=== PATIENT | female | born 1995 | race Caucasian/White ===

== ENCOUNTER 2018-06-02 23:39 | Emergency (ER) | payer SELFPAY ==
--- NOTE | 2018-06-02 23:51 | ER Report ---
History and Physical Time Seen By MD: 23:51 HPI/ROS CHIEF COMPLAINT: Suicidal ideation HISTORY OF PRESENT ILLNESS: 22-year-old female presents with 2 friends voluntarily requesting admission. She's been having suicidal ideation for several weeks to months. She is seeing a counselor, but is not making any progress. Patient has no specific plan. She denies drug or alcohol use. She states she is compliant on her Celexa. REVIEW OF SYSTEMS: Respiratory: No cough, no dyspnea. Cardiovascular: No chest pain, no palpitations. Gastrointestinal: No vomiting, no abdominal pain. Musculoskeletal: No back pain. Allergies: Coded Allergies: No Known Drug Allergies (Unverified , 06/03/18) Per patient Home Meds Reported Medications Albuterol Sulfate (VENTOLIN HFA) 18 Gm Inh, 2 PUFF INH Q4-6H PRN for PRN, INH 06/03/18 Citalopram Hydrobromide (CITALOPRAM HBR) 20 Mg Tablet, 40 MG PO QDAY, #5 TAB 06/03/18 Cetirizine Hcl (ZYRTEC) 10 Mg Capsule, 10 MG PO QDAY, CAPSULE 06/03/18 Reviewed Nurses Notes: Yes Old Medical Records Reviewed: Yes Constitutional Vital Sign - Last 24 Hours 06/02/18 06/02/18 06/02/18 06/03/18 23:39 23:47 23:48 00:00 Temp 98.6 Pulse ??? 89 Resp 18 B/P (MAP) 128/86 128/86 (100) 119/81 (94) Pulse Ox 93 06/03/18 06/03/18 06/03/18 00:09 00:30 01:00 Pulse 96 B/P (MAP) 118/82 (94) 110/72 (85) Pulse Ox 97 Physical Exam General Appearance: The patient is alert, has no immediate need for airway protection and no current signs of toxicity. Vital signs stable, afebrile, puls e ox normal Eyes: Pupils equal and round no injection. Respiratory: Chest is non tender, lungs are clear to auscultation. Cardiac: regular rate and rhythm Gastrointestinal: Abdomen is soft and non tender, no masses, bowel sounds normal. Musculoskeletal: Neck: Neck is supple and non tender. Extremities have full range of motion and are non tender. Skin: No rashes or lesions. DIFFERENTIAL DIAGNOSIS: After history and physical exam differential diagnosis was considered for depression including functional and major depression, situational depression, medication side effect, suicidal ideation, drugs and alcohol abuse. Medical Decision Making Data Points Result Diagram: 06/03/18 0020 06/03/18 0020 Laboratory Hematology Test 06/03/18 00:00 06/03/18 00:20 Urine Color Yellow Urine Clarity Clear Urine pH 7.0 pH (4.8-9.5) Urine Specific Graham 1.026 Urine Protein Negative mg/dL (NEGATIVE) Urine Glucose (UA) Negative mg/dL (NEGATIVE) Urine Ketones Negative mg/dL (NEGATIVE) Urine Blood Negative (NEGATIVE) Urine Nitrite Negative (NEGATIVE) Urine Bilirubin Negative (NEGATIVE) Urine Urobilinogen 2.0 mg/dL (0.2-1.9) Urine Leukocyte Esterase Moderate (NEGATIVE) Urine RBC 1 /HPF (0-2/HPF) Urine WBC 10 /HPF (0-5/HPF) Urine Squamous Epithelial Cells Many /LPF (</=FEW) Urine Bacteria Few /HPF (NONE-FEW) Urine Mucus Few /HPF (NONE-FEW) Urine HCG, Qualitative Negative (NEGATIVE) Urine Opiates Screen Negative Urine Barbiturates Screen Negative Ur Tricyclic Antidepressants Screen Negative Urine Phencyclidine Screen Negative Urine Amphetamines Screen Negative Urine Benzodiazepines Screen Negative Urine Cocaine Screen Negative Urine Cannabinoids Screen Negative Red Blood Count 4.62 M/uL (4.17-5.56) Mean Corpuscular Volume 86.7 fL (80.0-96.0) Mean Corpuscular Hemoglobin 29.4 pg (26.0-33.0) Mean Corpuscular Hemoglobin Concent 33.8 g/dL (32.0-36.0) Red Cell Distribution Width 13.9 % (11.5-14.5) Mean Platelet Volume 9.8 fL (7.2-11.1) Neutrophils (%) (Auto) 44.2 % (39.4-72.5) Lymphocytes (%) (Auto) 45.8 % (17.6-49.6) Monocytes (%) (Auto) 5.8 % (4.1-12.4) Eosinophils (%) (Auto) 3.1 % (0.4-6.7) Basophils (%) (Auto) 1.1 % (0.3-1.4) Nucleated RBC Relative Count (auto) 0.1 /100WBC Neutrophils # (Auto) 4.0 K/uL (2.0-7.4) Lymphocytes # (Auto) 4.2 K/uL (1.3-3.6) Monocytes # (Auto) 0.5 K/uL (0.3-1.0) Eosinophils # (Auto) 0.3 K/uL (0.0-0.5) Basophils # (Auto) 0.1 K/uL (0.0-0.1) Nucleated RBC Absolute Count (auto) 0.01 K/uL Sodium Level 140 mmol/L (137-145) Potassium Level 3.6 mmol/L (3.5-5.0) Chloride Level 107 mmol/L (98-107) Carbon Dioxide Level 24 mmol/L (22-31) Blood Urea Nitrogen 14 mg/dl (7-18) Creatinine 0.70 mg/dl (0.52-1.04) Glomerular Filtration Rate Calc > 60.0 Random Glucose 96 mg/dl (75-110) Calcium Level 9.3 mg/dl (8.4-10.2) Magnesium Level 1.8 mg/dl (1.7-2.2) Total Bilirubin 0.3 mg/dl (0.2-1.3) Aspartate Amino Transf (AST/SGOT) 20 U/L (0-35) Alanine Aminotransferase (ALT/SGPT) 31 U/L (0-56) Alkaline Phosphatase 94 U/L (0-126) Total Protein 6.8 g/dl (6.3-8.2) Albumin 4.3 g/dl (3.5-5.0) Salicylates Level < 10 mg/L Salicylate Last Dose Date unk Acetaminophen Level < 10 ug/ml Serum Alcohol < 10 mg/dl Chemistry Test 06/03/18 00:00 06/03/18 00:20 Urine Color Yellow Urine Clarity Clear Urine pH 7.0 pH (4.8-9.5) Urine Specific Graham 1.026 Urine Protein Negative mg/dL (NEGATIVE) Urine Glucose (UA) Negative mg/dL (NEGATIVE) Urine Ketones Negative mg/dL (NEGATIVE) Urine Blood Negative (NEGATIVE) Urine Nitrite Negative (NEGATIVE) Urine Bilirubin Negative (NEGATIVE) Urine Urobilinogen 2.0 mg/dL (0.2-1.9) Urine Leukocyte Esterase Moderate (NEGATIVE) Urine RBC 1 /HPF (0-2/HPF) Urine WBC 10 /HPF (0-5/HPF) Urine Squamous Epithelial Cells Many /LPF (</=FEW) Urine Bacteria Few /HPF (NONE-FEW) Urine Mucus Few /HPF (NONE-FEW) Urine HCG, Qualitative Negative (NEGATIVE) Urine Opiates Screen Negative Urine Barbiturates Screen Negative Ur Tricyclic Antidepressants Screen Negative Urine Phencyclidine Screen Negative Urine Amphetamines Screen Negative Urine Benzodiazepines Screen Negative Urine Cocaine Screen Negative Urine Cannabinoids Screen Negative White Blood Count 9.2 k/uL (4.5-11.0) Red Blood Count 4.62 M/uL (4.17-5.56) Hemoglobin 13.6 g/dL (12.0-16.0) Hematocrit 40.1 % (34.0-47.0) Mean Corpuscular Volume 86.7 fL (80.0-96.0) Mean Corpuscular Hemoglobin 29.4 pg (26.0-33.0) Mean Corpuscular Hemoglobin Concent 33.8 g/dL (32.0-36.0) Red Cell Distribution Width 13.9 % (11.5-14.5) Platelet Count 246 K/uL (150-450) Mean Platelet Volume 9.8 fL (7.2-11.1) Neutrophils (%) (Auto) 44.2 % (39.4-72.5) Lymphocytes (%) (Auto) 45.8 % (17.6-49.6) Monocytes (%) (Auto) 5.8 % (4.1-12.4) Eosinophils (%) (Auto) 3.1 % (0.4-6.7) Basophils (%) (Auto) 1.1 % (0.3-1.4) Nucleated RBC Relative Count (auto) 0.1 /100WBC Neutrophils # (Auto) 4.0 K/uL (2.0-7.4) Lymphocytes # (Auto) 4.2 K/uL (1.3-3.6) Monocytes # (Auto) 0.5 K/uL (0.3-1.0) Eosinophils # (Auto) 0.3 K/uL (0.0-0.5) Basophils # (Auto) 0.1 K/uL (0.0-0.1) Nucleated RBC Absolute Count (auto) 0.01 K/uL Glomerular Filtration Rate Calc > 60.0 Calcium Level 9.3 mg/dl (8.4-10.2) Magnesium Level 1.8 mg/dl (1.7-2.2) Total Bilirubin 0.3 mg/dl (0.2-1.3) Aspartate Amino Transf (AST/SGOT) 20 U/L (0-35) Alanine Aminotransferase (ALT/SGPT) 31 U/L (0-56) Alkaline Phosphatase 94 U/L (0-126) Total Protein 6.8 g/dl (6.3-8.2) Albumin 4.3 g/dl (3.5-5.0) Salicylates Level < 10 mg/L Salicylate Last Dose Date unk Acetaminophen Level < 10 ug/ml Serum Alcohol < 10 mg/dl Toxicology Test 06/03/18 00:00 06/03/18 00:20 Urine Opiates Screen Negative Urine Barbiturates Screen Negative Ur Tricyclic Antidepressants Screen Negative Urine Phencyclidine Screen Negative Urine Amphetamines Screen Negative Urine Benzodiazepines Screen Negative Urine Cocaine Screen Negative Urine Cannabinoids Screen Negative Salicylates Level < 10 mg/L Salicylate Last Dose Date unk Acetaminophen Level < 10 ug/ml Serum Alcohol < 10 mg/dl Urinalysis Test 06/03/18 00:00 Urine Color Yellow Urine Clarity Clear Urine pH 7.0 pH (4.8-9.5) Urine Specific Graham 1.026 Urine Protein Negative mg/dL (NEGATIVE) Urine Glucose (UA) Negative mg/dL (NEGATIVE) Urine Ketones Negative mg/dL (NEGATIVE) Urine Blood Negative (NEGATIVE) Urine Nitrite Negative (NEGATIVE) Urine Bilirubin Negative (NEGATIVE) Urine Urobilinogen 2.0 mg/dL (0.2-1.9) Urine Leukocyte Esterase Moderate (NEGATIVE) Urine RBC 1 /HPF (0-2/HPF) Urine WBC 10 /HPF (0-5/HPF) Urine Squamous Epithelial Cells Many /LPF (</=FEW) Urine Bacteria Few /HPF (NONE-FEW) Urine Mucus Few /HPF (NONE-FEW) Urine HCG, Qualitative Negative (NEGATIVE) ED Course/Re-evaluation ED Course Patient was admitted to an examination room. H&P was done. The differential diagnoses was considered. Patient was suicidal ideation but no active plan. P atient wants to be voluntarily admitted to [facility] for treatment and help. Patient states she's been suffering with severe depression and suicidal ideation for several weeks. 06/03/2018 12:58:20 am is discussed with Dr. Ban Chambers psychiatrist's on- call. She accepts the patient is a voluntary admission to [facility] for suicidal ideation and depression. Decision to Disposition Date: Jun 03, 2018 Decision to Disposition Time: 00:57 Depart Departure Latest Vital Signs Vital Signs Date Time Temp Pulse Resp B/P (MAP) Pulse Ox O2 Delivery O2 Flow Rate FiO2 06/03/18 01:00 110/72 (85) 06/03/18 00:09 96 97 06/02/18 23:47 98.6 18 Impression: Primary Impression: Depression with suicidal ideation Additional Impressions: History of asthma History of allergic rhinitis Condition: Improved Disposition: XFER TO [facility] Problem Qualifiers JUSTINE HARRINGTON DO Jun 02, 2018 23:51
[2018-06-03] MEDS ORDERED: ALB18R INH (00:01)
[2018-06-03] MEDS ORDERED: CETI10CA8 PO (00:01)
[2018-06-03] MEDS ORDERED: CITA-145 PO (00:01)
[2018-06-03 00:32] LABS: PLATELET COUNT, AUTOMATED 246 K/uL (150-450)
[2018-06-03 01:00] VITALS: BP 110/72
[2018-06-04] MEDS ORDERED: LAMO25TA64 PO (10:23)
== END 2018-06-03 01:10 ==
LOC: ER 06-03 00:04
DX: F32.9 Major depressive disorder, single episode, unspecified (principal); R45.851 Suicidal ideations
CPT/HCPCS: 36415; 80305; 80320; 80329; 81001; 81025; 82040; 82247; 82310; 82374; 82435; 82565; 82947; 83735; 84075; 84132; 84155; 84295; 84443; 84450; 84460; 84520; 85025; 99284

== ENCOUNTER 2018-06-03 01:01 | Inpatient (IN) | payer SELFPAY ==
[~2018-06-03] VITALS: Ht 165.1 cm; Wt 59.9 kg
[~2018-06-03 01:01] MED LIST: ALB18R INH; CETI10CA8 PO; CITA-145 PO
[2018-06-03] MEDS ORDERED: MAG HYD/AL HYD/SIMETH 30ML UDC PO PRN (01:10)
[2018-06-03] MEDS ORDERED: ACETAMINOPHEN 325 MG TAB PO PRN (01:10)
[2018-06-03] MEDS ORDERED: hydrOXYzine PAMOATE 25 MG CAP PO PRN (01:10)
[2018-06-03 01:37] VITALS: BP 98/64
[2018-06-03] MEDS: MULTIVITAMINS TAB PO SCH (08:18)
[2018-06-03] MEDS ORDERED: INFLUENZA VIRUS VAC 0.5ML SYR IM ONLY ONE (10:25)
[2018-06-03] MEDS: lamoTRIgine 25 MG TAB PO SCH (12:22)
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
[2018-06-04 06:25] VITALS: BP 102/67
[2018-06-04] MEDS: MULTIVITAMINS TAB PO SCH (08:27)
[2018-06-04] MEDS: lamoTRIgine 25 MG TAB PO SCH (08:28)
[2018-06-04] MEDS ORDERED: LAMO25TA64 PO (10:23)
--- NOTE | 2018-06-04 17:05 | BHS Discharge Summary ---
[facility] Discharge Summary [id number] Encounter Date: Jun 04, 2018 Xatm-[id number] Encounter Time: 11:00 Reason-Hosp/Final Diag (DSM-V): (1) Bipolar 2 disorder Hospital Course & Plan: PRESENTING PROBLEM, CHIEF COMPLAINT "I ran out of my medication a couple days ago. 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 She has been seeing a counselor, although reported that she is not making any progress. Patient denied any specific plan to end her life. She denies use of drugs or alcohol. She has been taking citalopram since November 2017, although reports the last month and a half that the medication dose was increased from 20 to 40 mg with noted increase in irritability. She has been seeing Rabia Sarmiento at [facility], who she states is now moving to [facility]. She also has been seeing a counselor named Bernarda one time every two weeks since March 2018. She has never been an inpatient on a psychiatric unit. She does report that in 2013 through 2015, she had some self-harm behavior in the form of scratching herself. She was initially seen by a mental health care provider in 2013, where she had suicidal ideation and thought of overdosing on her grandmother's medications. HOSPITAL COURSE Pt was admitted to [facility] and maintained on suicide precautions. She was pleasant, cooperative, and invested in her treatment. Her grandmother was involved in her care by speaker phone. Because of her history of mild mood swings-- mostly to depression, with some hypomanic episodes but never true john, the diagnosis of bipolar 2 was given. We DC'd celexa and started her on lamictal. She unde rstands the serious risk of rash, and to notify her provider immediately if she notices a rash. We explained the necessicity of slow titration by 25 mg every two weeks until 100 mg per day. She denied active SI-- she said she was encouraged and very hopeful that this diagnosis and medication change would be helpful to her. She was discharged in stable condition to follow up with Kaelyn at [facility], and with Rabia Sarmiento at [facility] for meds. She was given an appointment to see the electric spot welder office at as well. Physical Exam Latest Vital Signs Vital Signs 06/03/18 06/04/18 01:37 06:25 Temp 99.4 Pulse 89 Resp 16 B/P (MAP) 102/67 (79) Pulse Ox 97 O2 Delivery Room Air Mental Status Exam General Appearance: Casual, Well Groomed, Good Eye Contact, Cooperative, Polite, Good Interaction Speech: Clear, Spontaneous, Normal Rate, Normal Rhythm, Normal Volume, Normal Tone Mood: Euthymic Affect: Full and Appropriate, Calm Thought Process: Organized, Logical, Goal Directed Thought Content: No Suicidal Ideation, No Homicidal Ideation, No Delusions, No Auditory Halllucinations, No Visual Hallucinations, No Thought Broadcasting, No Ideas of Reference, No Obsessions, No Compulsions, No Other Sensorium: Clear Cognition: Alert & Oriented-Person, Alert & Oriented-Place, Alert & Oriented- Time Memory: Immediate, Recent, Remote Intelligence: Above Average Insight Judgment: Good Departure Item Value Date Time Urine Color Yellow 06/03/18902 Urine Clarity Clear 06/03/18 09 Urine pH 6.0 pH 06/03/18 09 Urine Specific [place] 1.020 06/03/18902 Urine Protein Negative mg/dL 06/03/18902 Urine Glucose (UA) Negative mg/dL 06/03/18 09 Urine Ketones Negative mg/dL 06/03/18 09 Urine Blood Negative 06/03/18902 Urine Nitrite Negative 06/03/18902 Urine Urobilinogen Negative mg/dL 06/03/18902 Urine Bilirubin Negative 06/03/18902 Urine Leukocyte Esterase Trace H 06/03/18 09 Urine RBC <1 /HPF 06/03/18 0903 Urine WBC <1 /HPF 06/03/18 0903 Urine Squamous Epithelial Cells Many /LPF H 06/03/18 0903 Urine Bacteria Negative /HPF 06/03/18 0903 Urine Mucus Few /HPF 06/03/18 0903 White Blood Count 9.2 k/uL 06/03/18 0020 Red Blood Count 4.62 M/uL 06/03/18 0020 Hemoglobin 13.6 g/dL 06/03/18 0020 Hematocrit 40.1 % 06/03/18 0020 Mean Corpuscular Volume 86.7 fL 06/03/18 002 Mean Corpuscular Hemoglobin 29.4 pg 06/03/18 002 Mean Corpuscular Hemoglobin Concent 33.8 g/dL 06/03/18 002 Red Cell Distribution Width 13.9 % 06/03/18 002 Platelet Count 246 K/uL 06/03/18 002 Sodium Level 140 mmol/L 06/03/18 0020 Potassium Level 3.6 mmol/L 06/03/18 002 Chloride Level 107 mmol/L 06/03/18 002 Carbon Dioxide Level 24 mmol/L 06/03/18 002 Blood Urea Nitrogen 14 mg/dl 06/03/18 002 Creatinine 0.70 mg/dl 06/03/18 002 Glomerular Filtration Rate Calc > 60.0 06/03/18 002 Random Glucose 96 mg/dl 06/03/18 002 Calcium Level 9.3 mg/dl 06/03/18 002 Magnesium Level 1.8 mg/dl 06/03/18 002 Total Bilirubin 0.3 mg/dl 06/03/18 002 Aspartate Amino Transf (AST/SGOT) 20 U/L 06/03/18 0020 Alanine Aminotransferase (ALT/SGPT) 31 U/L 06/03/18 002 Alkaline Phosphatase 94 U/L 06/03/18 002 Total Protein 6.8 g/dl 06/03/18 0020 Albumin 4.3 g/dl 06/03/18 002 Thyroid Stimulating Hormone (TSH) 3.46 uIU/ml 06/03/18 002 Salicylates Level < 10 mg/L 06/03/18 002 Salicylate Last Dose Date unk 06/03/18 0020 Urine Opiates Screen Negative 06/03/18 0000 Acetaminophen Level < 10 ug/ml 06/03/18 002 Urine Barbiturates Screen Negative 06/03/18 0000 Ur Tricyclic Antidepressants Screen Negative 06/03/18 0000 Urine Phencyclidine Screen Negative 06/03/18 0000 Urine Amphetamines Screen Negative 06/03/18 0000 Urine Benzodiazepines Screen Negative 06/03/18 0000 Urine Cocaine Screen Negative 06/03/18 0000 Urine Cannabinoids Screen Negative 06/03/18 0000 Serum Alcohol < 10 mg/dl 06/03/18 002 Condition: Improved Discharge to: Home Discharge Instructions Home Meds Reported Medications Lamotrigine (LAMICTAL) 25 Mg Tablet, 25 MG PO QAM for 12 Days Take daily for 12 more days. Then increase to 50mg daily. 06/04/18 Albuterol Sulfate (VENTOLIN HFA) 18 Gm Inh, 2 PUFF INH Q4-6H PRN for PRN, INH 06/03/18 Cetirizine Hcl (ZYRTEC) 10 Mg Capsule, 10 MG PO QDAY, CAPSULE 06/03/18 Discontinued Reported Medications Citalopram Hydrobromide (CITALOPRAM HBR) 20 Mg Tablet, 40 MG PO QDAY, #5 TAB 06/03/18 Multpiple Antipsychotics Used: No Diet: Regular Activity: As Tolerated Special Instructions: Discharge home. Follow-up with outpatient therapy and medication management as scheduled. Follow-up with the [employer] [facility] electric spot welder before return to classes. Call crisis line or return to Emergency Room for any suicidal or homicidal thoughts. ODUG RENTERIA MD Jun 04, 2018 17:05
== END 2018-06-04 10:41 | disposition home or self-care (01) | DRG 885 ==
LOC: BHS 01:01
PROVIDERS: ADMIT Psychiatry & Neurology Psychiatry; ATTEND Psychiatry & Neurology Psychiatry
DX: F31.81 Bipolar II disorder (principal); R45.851 Suicidal ideations; Z62.811 Personal history of psychological abuse in childhood; Z91.5 Personal history of self-harm; Z56.3 Stressful work schedule; Z59.9 Problem related to housing and economic circumstances, unspecified
CPT/HCPCS: 81001; 90471; 90674; Q0177